=== PATIENT | female | born 1995 | race American Indian/Alaskan Native ===

== ENCOUNTER 2017-04-07 10:17 | Inpatient (IN) | payer MEDICAID ==
[2017-04-07] MEDS ORDERED: ZOFRAN IV PRN ×2 (11:14→23:08)
[2017-04-07] MEDS ORDERED: BRETHINE SUB-Q PRN (11:14)
[2017-04-07] MEDS ORDERED: MINERAL OIL PO PRN (11:14)
[2017-04-07] MEDS ORDERED: ePHEDrine SULFATE IV PRN (11:14)
[2017-04-07] MEDS ORDERED: BRETHINE IVP PRN (11:14)
[2017-04-07] MEDS ORDERED: SUBLIMAZE IV PRN (11:14)
[2017-04-07] MEDS ORDERED: XYLOCAINE 2% INFILTRATI ONE (11:14)
[2017-04-07] MEDS ORDERED: POLYCILLIN/NS 2 GM/100 ML 2 GM/100 ML BAG IV ONE (11:14)
--- NOTE | 2017-04-07 11:21 | History and Physical Report ---
History of Present Illness Date of examination: 04/07/17 Chief complaint: Painful contractions History of present illness: 21-year-old at 40+3 presents in active labor, she is a drop-in patient with care at Dr. Rebecca Crabtree's office. course unremarkable per patient, she is unsure of her GBS status but one-hour testing was negative. Dr Crabtree's office is closed this morning, I have no records Past History Past Medical History: no pertinent history Past Surgical History: no surgical history [employer] History: denies: chlamydia, gonorrhea, hepatitis B, hepatitis C, herpes, HIV , syphilis Social history: single, full code. denies: smoking, IV drug use - Obstetrical History Expected Date of Delivery: 04/04/17 Actual Gestation: 40 Week(s) 3 Day(s) : 1 Para: 0 Medications and Allergies Allergies Allergy/AdvReac Type Severity Reaction Status Date / Time No Known Allergies Allergy Unverified 04/07/17 10:44 Active Meds: Active Medications Ephedrine Sulfate (Ephedrine Sulfate) 10 mg IV Q2M PRN PRN Reason: Hypotension Fentanyl (Sublimaze) 100 mcg IV Q2H PRN PRN Reason: Labor Pain Ampicillin Sodium (Polycillin/Ns 2 Gm/100 Ml) 2 gm in 100 mls @ 100 mls/hr IV ONCE ONE PRN Reason: Protocol Stop: 04/07/17 12:13 Ampicillin Sodium (Polycillin/Ns 1 Gm/50 Ml) 1 gm in 50 mls @ 100 mls/hr IV Q4HR SHANE PRN Reason: Protocol Lactated Ringer's (Lactated Ringers) 1,000 mls @ 125 mls/hr IV DIRECT SHANE Oxytocin/Sodium Chloride (Pitocin/Ns 20 Unit/1000ml Drip) 20 units in 1,000 mls @ 125 mls/hr IV DIRECT SHANE Oxytocin/Sodium Chloride (Pitocin/Ns 30 Unit/500ml) 30 units in 500 mls @ 1 mls /hr IV TITR SHANE; 1 MILLIUNITS/MIN PRN Reason: Protocol Oxytocin/Sodium Chloride (Pitocin/Ns 30 Unit/500ml) 30 units in 500 mls @ 2 mls /hr IV TITR SHANE PRN Reason: Protocol Lidocaine (Xylocaine 2%) 20 ml INFILTRATI ONCE ONE Stop: 04/07/17 11:15 Mineral Oil (Mineral Oil) 30 ml PO QHS PRN PRN Reason: Constipation Ondansetron HCl (Zofran) 4 mg IV Q8H PRN PRN Reason: Nausea And Vomiting Terbutaline Sulfate (Brethine) 0.25 mg SUB-Q ONCE PRN PRN Reason: Hyperstimulation/Hypertonicity Terbutaline Sulfate (Brethine) 0.25 mg IVP ONCE PRN PRN Reason: Hyperstimulation/Hypertonicity Review of Systems Constitutional: no fever, no chills, no fatigue, no weakness, no chronic headaches, no chronic pain Cardiovascular: no chest pain, no orthopnea, no edema, no lightheadedness, no shortness of breath, no dyspnea on exertion, no high blood pressure, no decreased exercise tolerance Respiratory: no cough, no cough with sputum, no shortness of breath, no dyspnea on exertion Gastrointestinal: no abdominal pain, no nausea, no vomiting Genitourinary: contractions, no vaginal bleeding, no vaginal discharge, no leakage of fluid - Vital Signs Vital signs: Vital Signs Pulse BP 88 110/75 04/07/17 10:36 04/07/17 10:36 Temp Pulse Resp BP Pulse Ox 88 110/75 04/07/17 10:36 04/07/17 10:36 - Physical Exam Cardiovascular: Regular rate, Normal S1, Normal S2 Lungs: Positive: Clear to auscultation, Normal air movement Abdomen: Positive: normal appearance, soft. Negative: distention, tenderness, guarding, rigidity Vulva: both: normal Uterus: Positive: enlarged (EFW ~ 3600) Extremities: Positive: normal - Obstetrical FHR: category 1 Cervical Dilatation: 5 (Per RN exam) Results All other labs normal. Assessment and Plan A: 21-year-old at 40+3 weeks in active labor -Cat 1 tracing P: -Admit -Routine labs including PNL -Epidural when necessary -Expectant management - Patient Problems (1) 40 weeks gestation of Current Visit: Yes Status: Acute (2) Active labor at term Current Visit: Yes Status: Acute
[2017-04-07] MEDS ORDERED: PITOCin/NS 20 UNIT/1000ML DRIP 20 UNITS/1,000 ML BAG IV SCH ×2 (12:00→23:45)
[2017-04-07] MEDS ORDERED: PITOCin/NS 30 UNIT/500ML 30 UNITS/500 ML BAG IV SCH ×2 (12:00)
[2017-04-07 12:01] LABS: Hematocrit 34.1 % (30.3-42.9); Mean Corpuscular HGB Conc 32 % (30-34); Mean Corpuscular Volume 78 fl (79-97); Platelet Count 249 K/mm3 (140-440); Red Blood Count 4.36 M/mm3 (3.65-5.03); Red Cell Distribution Width 16.6 % (13.2-15.2)
[2017-04-07 12:05] LABS: Mean Corpuscular Hemoglobin 25 pg (28-32)
[2017-04-07] MEDS: LACTATED RINGERS 1,000 ML IV SCH ×3 (12:15→20:47)
[2017-04-07 12:18] LABS: Rubella IgG Antibody Immune (Immune)
[2017-04-07 12:22] LABS: Hepatitis C Virus Antibody Non-Reactive (NonReactive)
--- NOTE | 2017-04-07 14:02 | Progress Note ---
Assessment and Plan A: 21-year-old at 40+3 weeks in active labor -Cat 1 tracing P: -Epidural now -Continue present care -Anticipate normal vaginal delivery - Patient Problems (1) 40 weeks gestation of Current Visit: Yes Status: Acute (2) Active labor at term Current Visit: Yes Status: Acute Subjective - Subjective Date of service: 04/07/17 Interval history: Patient seen and examined, stable doing well. Cervical exam 6 cm Patient reports: new complaints, movement normal, contractions, no loss of fluid, no vaginal bleeding Objective - Vital Signs Vital Signs: Vital Signs - 12hr 04/07/17 04/07/17 04/07/17 10:36 12:31 12:36 Pulse Rate 88 110 H 84 Blood Pressure 110/75 O2 Sat by Pulse 93 99 Oximetry 04/07/17 04/07/17 04/07/17 12:40 12:41 12:46 Pulse Rate 111 H 94 H 91 H Blood Pressure O2 Sat by Pulse 93 98 97 Oximetry 04/07/17 04/07/17 04/07/17 12:51 12:56 13:01 Pulse Rate 82 84 94 H Blood Pressure O2 Sat by Pulse 97 98 99 Oximetry 04/07/17 04/07/17 04/07/17 13:06 13:11 13:16 Pulse Rate 87 99 H 72 Blood Pressure O2 Sat by Pulse 98 98 99 Oximetry 04/07/17 04/07/17 04/07/17 13:21 13:26 13:31 Pulse Rate 87 91 H 86 Blood Pressure O2 Sat by Pulse 99 99 98 Oximetry 04/07/17 04/07/17 04/07/17 13:36 13:41 13:43 Pulse Rate 80 85 101 H Blood Pressure O2 Sat by Pulse 97 97 0 L Oximetry 04/07/17 04/07/17 04/07/17 13:46 13:51 13:52 Pulse Rate 83 85 102 H Blood Pressure O2 Sat by Pulse 97 97 91 Oximetry 04/07/17 04/07/17 04/07/17 13:56 13:59 14:01 Pulse Rate 91 H 98 H 100 H Blood Pressure O2 Sat by Pulse 94 84 95 Oximetry - Exam FHR: category 1 Cervical Dilatation: 6 Cervical Effacement Percentage: 100 station: -1 - Labs Labs: Abnormal Labs 04/07/17 11:30 MCV 78 L MCH 25 L RDW 16.6 H Laboratory Results - last 24 hr 04/07/17 04/07/17 04/07/17 11:30 11:30 11:30 WBC 9.4 RBC 4.36 Hgb 11.0 Hct 34.1 MCV 78 L MCH 25 L MCHC 32 RDW 16.6 H Plt Count 249 Hep Bs Antigen Hepatitis C Antibody Non-reactive HIV 1&2 Antibody Rapid HIV P24 Antigen Rubella IgG Antibody Immune Blood Type O POSITIVE Antibody Screen Negative 04/07/17 04/07/17 11:30 11:30 WBC RBC Hgb Hct MCV MCH MCHC RDW Plt Count Hep Bs Antigen Non-reactive Hepatitis C Antibody HIV 1&2 Antibody Rapid Non react HIV P24 Antigen Non react Rubella IgG Antibody Blood Type Antibody Screen
[2017-04-07] MEDS ORDERED: NARCAN 2 MG/2 ML IV PRN (14:35)
--- NOTE | 2017-04-07 14:35 | Anesthesia Consultation ---
Anesthesia Consult and Med Hx Date of service: 04/07/17 - Airway Anesthetic Teeth Evaluation: Good ROM Head & Neck: Adequate Mental/Hyoid Distance: Adequate Mallampati Class: Class II Intubation Access Assessment: Probably Good - Pulmonary Exam CTA: Yes - Cardiac Exam Cardiac Exam: RRR - Pre-Operative Health Status ASA Pre-Surgery Classification: ASA2 Proposed Anesthetic Plan: Epidural, Spinal - Pulmonary Hx Asthma: No COPD: No Hx Pneumonia: No - Cardiovascular System Hx Hypertension: No - Central Nervous System Hx Seizures: No Hx Psychiatric Problems: No - Endocrine Hx Renal Disease: No Hx End Stage Renal Disease: No Hx Hypothyroidism: No Hx Hyperthyroidism: No - Hematic Hx Anemia: No Hx Sickle Cell Disease: No - Other Systems Hx Alcohol Use: No Hx Obesity: Yes - Additional Comments Anesthesia Medical History Comments: +IUP
[2017-04-07] MEDS ORDERED: fentaNYL-BUPIV 2 MCG/ML-0.125% 200 MCG/100 ML BAG EPIDURAL SCH (14:36)
[2017-04-07] MEDS ORDERED: POLYCILLIN/NS 1 GM/50 ML 1 GM/50 ML BAG IV SCH (15:15)
--- NOTE | 2017-04-07 16:26 | Progress Note ---
Assessment and Plan - Patient Problems (1) 40 weeks gestation of Current Visit: Yes Status: Acute (2) Active labor at term Current Visit: Yes Status: Acute Subjective - Subjective Date of service: 04/07/17 Interval history: Patient status post epidural with bradycardia secondary to hypotension. Above resolved with fluid boluses and ephedrine, now category 1 Patient reports: new complaints, movement normal, contractions, no loss of fluid, no vaginal bleeding Objective - Vital Signs Vital Signs: Vital Signs - 12hr 04/07/17 04/07/17 04/07/17 10:36 12:31 12:36 Pulse Rate 88 110 H 84 Blood Pressure 110/75 O2 Sat by Pulse 93 99 Oximetry 04/07/17 04/07/17 04/07/17 12:40 12:41 12:46 Pulse Rate 111 H 94 H 91 H Blood Pressure O2 Sat by Pulse 93 98 97 Oximetry 04/07/17 04/07/17 04/07/17 12:51 12:56 13:01 Pulse Rate 82 84 94 H Blood Pressure O2 Sat by Pulse 97 98 99 Oximetry 04/07/17 04/07/17 04/07/17 13:06 13:11 13:16 Pulse Rate 87 99 H 72 Blood Pressure O2 Sat by Pulse 98 98 99 Oximetry 04/07/17 04/07/17 04/07/17 13:21 13:26 13:31 Pulse Rate 87 91 H 86 Blood Pressure O2 Sat by Pulse 99 99 98 Oximetry 04/07/17 04/07/17 04/07/17 13:36 13:41 13:43 Pulse Rate 80 85 101 H Blood Pressure O2 Sat by Pulse 97 97 0 L Oximetry 04/07/17 04/07/17 04/07/17 13:46 13:51 13:52 Pulse Rate 83 85 102 H Blood Pressure O2 Sat by Pulse 97 97 91 Oximetry 04/07/17 04/07/17 04/07/17 13:56 13:59 14:01 Pulse Rate 91 H 98 H 100 H Blood Pressure O2 Sat by Pulse 94 84 95 Oximetry 04/07/17 04/07/17 04/07/17 14:06 14:11 14:20 Pulse Rate 85 86 114 H Blood Pressure 134/92 O2 Sat by Pulse 98 99 Oximetry 04/07/17 04/07/17 04/07/17 14:22 14:24 14:26 Pulse Rate 100 H 111 H 104 H Blood Pressure 122/81 134/80 134/80 O2 Sat by Pulse Oximetry 04/07/17 04/07/17 04/07/17 14:28 14:30 14:32 Pulse Rate 96 H 101 H 100 H Blood Pressure 126/73 117/66 120/77 O2 Sat by Pulse Oximetry 04/07/17 04/07/17 04/07/17 14:34 14:55 14:56 Pulse Rate 99 H 82 82 Blood Pressure 109/57 90/51 O2 Sat by Pulse 74 L Oximetry 04/07/17 04/07/17 04/07/17 15:00 15:04 15:05 Pulse Rate 77 56 L 81 Blood Pressure 77/51 72/43 70/42 O2 Sat by Pulse 100 92 80 L Oximetry 04/07/17 04/07/17 04/07/17 15:10 15:12 15:15 Pulse Rate 71 84 69 Blood Pressure 120/59 112/59 O2 Sat by Pulse 100 100 Oximetry 04/07/17 04/07/17 04/07/17 15:20 15:25 15:30 Pulse Rate 71 92 H 78 Blood Pressure 120/58 108/60 103/58 O2 Sat by Pulse 100 100 100 Oximetry 04/07/17 04/07/17 04/07/17 15:35 15:40 15:45 Pulse Rate 86 91 H 85 Blood Pressure 113/62 121/69 108/72 O2 Sat by Pulse 100 100 100 Oximetry 04/07/17 04/07/17 04/07/17 15:48 15:50 15:51 Pulse Rate 96 H 100 H 96 H Blood Pressure 108/79 O2 Sat by Pulse 94 100 Oximetry 04/07/17 04/07/17 04/07/17 15:55 16:00 16:05 Pulse Rate 98 H 86 89 Blood Pressure 104/75 110/60 109/64 O2 Sat by Pulse 100 100 100 Oximetry 04/07/17 04/07/17 04/07/17 16:10 16:15 16:16 Pulse Rate 87 89 93 H Blood Pressure 109/63 115/69 O2 Sat by Pulse 100 100 Oximetry 04/07/17 16:20 Pulse Rate 86 Blood Pressure O2 Sat by Pulse 100 Oximetry - Exam FHR: category 1 Cervical Dilatation: 7 - Labs Labs: Abnormal Labs 04/07/17 11:30 MCV 78 L MCH 25 L RDW 16.6 H Laboratory Results - last 24 hr 04/07/17 04/07/17 04/07/17 11:30 11:30 11:30 WBC 9.4 RBC 4.36 Hgb 11.0 Hct 34.1 MCV 78 L MCH 25 L MCHC 32 RDW 16.6 H Plt Count 249 Hep Bs Antigen Hepatitis C Antibody Non-reactive HIV 1&2 Antibody Rapid HIV P24 Antigen Rubella IgG Antibody Immune Blood Type O POSITIVE Antibody Screen Negative 04/07/17 04/07/17 11:30 11:30 WBC RBC Hgb Hct MCV MCH MCHC RDW Plt Count Hep Bs Antigen Non-reactive Hepatitis C Antibody HIV 1&2 Antibody Rapid Non react HIV P24 Antigen Non react Rubella IgG Antibody Blood Type Antibody Screen
[2017-04-07 21:06] LABS: Amphetamine Screen,Urine PRESUMPTIVE NEGATIVE; Benzodiazepines Screen,Urine PRESUMPTIVE NEGATIVE; Cannabinoid Screen,Urine PRESUMPTIVE NEGATIVE; Cocaine Screen,Urine PRESUMPTIVE NEGATIVE; Methadone Screen,Urine PRESUMPTIVE NEGATIVE; Opiate Screen,Urine PRESUMPTIVE NEGATIVE
--- NOTE | 2017-04-07 23:06 | Procedure Note ---
OB Delivery Note - Delivery Date of Delivery: 04/07/17 Surgeon: BANG CRAWFORD Estimated blood loss: 100cc - Vaginal Delivery presentation: vertex Delivery position: OA Intrapartum events: shoulder dystocia (Posterior shoulder dystocia of less than 30 seconds duration) Delivery induction: none Delivery augmentation: pitocin Delivery monitor: external FHT, external uterine Route of delivery: Delivery placenta: spontaneous Delivery cord: 3 umbilical vessels Episiotomy: none Delivery laceration: 1st degree, vaginal side wall (bilateral) Delivery repair: vicryl Anesthesia: epidural Delivery comments: Posterior shoulder dystocia less than 30 seconds and counted. Above relieved with Ronnie positioning delivery of the anterior arm and then delivered the posterior arm - A at 1 minute: 5 at 5 minutes: 8 Infant Gender: Male (time of delivery 2244, infant weight 7 lbs. 2 oz. or 3236 g )
[2017-04-07] MEDS ORDERED: PHENERGAN PO PRN (23:08)
[2017-04-07] MEDS ORDERED: DULCOLAX PR PRN (23:08)
[2017-04-07] MEDS ORDERED: TYLENOL PO PRN (23:08)
[2017-04-07] MEDS ORDERED: BENADRYL PO PRN (23:08)
[2017-04-07] MEDS ORDERED: MILK OF MAGNESIA PO PRN (23:08)
[2017-04-07] MEDS ORDERED: PHENERGAN PR PRN (23:08)
[2017-04-07] MEDS ORDERED: SODIUM CHLORIDE FLUSH SYRINGE 10 ML IV PRN (23:45)
[2017-04-08] MEDS: TUCKS PAD TP PRN ×2 (02:29→12:28)
[2017-04-08] MEDS ORDERED: DERMOPLAST TP PRN (02:52)
[2017-04-08] MEDS: NORCO 5/325 PO PRN ×2 (04:48→19:59)
--- NOTE | 2017-04-08 07:27 | Progress Note ---
Assessment and Plan - Patient Problems (1) (normal spontaneous vaginal delivery) Onset Date: 04/08/17 Current Visit: Yes Status: Resolved Plan to address problem: A: S/P - PPD #1 Doing well P: May go home tomorrow Subjective - Subjective Date of service: 04/08/17 Principal diagnosis: s/p - PPD #1 Interval history: Pt feeling well without complaints. Bleeding still heavy but decreasing. Patient reports: appetite normal, voiding normally, pain well controlled, flatus , ambulating normally [place]: doing well, nursing well, bottle feeding Objective - Vital Signs Latest vital signs: Vital Signs Temp Pulse Resp BP Pulse Ox 04/08/17 05:41 98.4 F 97 H 20 109/73 99 04/08/17 04:48 18 04/08/17 01:17 99.3 F 76 20 108/57 98 04/08/17 00:01 78 124/67 04/07/17 23:46 81 128/70 04/07/17 23:31 85 124/66 04/07/17 23:30 98.5 F 04/07/17 23:29 85 125/67 04/07/17 23:17 96 H 125/69 04/07/17 23:02 97 H 121/57 04/07/17 22:26 121 H 115/79 04/07/17 22:17 84 123/60 04/07/17 22:14 121 H 98 04/07/17 22:08 108 H 100 04/07/17 22:03 103 H 72 L 04/07/17 22:02 100 H 140/69 04/07/17 22:01 79 L 04/07/17 21:58 91 H 93 04/07/17 21:54 104 H 92 04/07/17 21:53 108 H 100 04/07/17 21:48 95 H 100 04/07/17 21:46 91 H 130/82 04/07/17 21:43 92 H 100 04/07/17 21:38 84 100 04/07/17 21:33 84 100 04/07/17 21:32 90 133/75 04/07/17 21:28 102 H 100 04/07/17 21:23 116 H 100 04/07/17 21:19 103 H 121/62 04/07/17 21:13 89 93 01/18/18 21:10 90 100 01/18/18 21:08 97.7 F 01/18/18 21:05 90 100 01/18/18 21:02 82 109/60 01/18/18 21:00 99 H 98 01/18/18 20:55 92 H 93 01/18/18 20:50 95 H 100 01/18/18 20:47 94 H 106/59 01/18/18 20:45 101 H 100 01/18/18 20:36 101 H 100 01/18/18 20:31 98 H 106/64 100 01/18/18 20:26 99 H 100 01/18/18 20:21 106 H 100 /18/18 20:16 102 H 102/59 100 01/18/18 20:11 99 H 100 01/18/18 20:06 101 H 100 01/18/18 20:01 99 H 106/59 100 01/18/18 19:56 99 H 99 01/18/18 19:51 115 H 100 01/18/18 19:46 97 H 101/61 99 01/18/18 19:41 105 H 99 01/18/18 19:36 105 H 99 01/18/18 19:32 97 H 105/59 /18/18 19:31 91 H 99 01/18/18 19:25 97 H 100 01/18/18 19:21 87 91 01/18/18 19:20 101 H 98 01/18/18 19:18 109 H 161/65 01/18/18 19:15 100 H 99 01/18/18 19:10 104 H 98 01/18/18 19:05 100 H 98 01/18/18 19:04 97.7 F 20 01/18/18 19:00 108 H 111/60 98 01/18/18 18:55 96 H 111/63 99 01/18/18 18:50 98 H 115/62 98 01/18/18 18:45 92 H 115/66 99 01/18/18 18:40 101 H 108/64 98 01/18/18 18:35 98 H 111/65 99 01/18/18 18:30 104 H 105/59 100 01/18/18 18:25 94 H 99/50 100 01/18/18 18:20 96 H 112/64 100 01/18/18 18:16 97 H 110/65 18/18 18:15 97 H 100 18/18 18:10 98 H 107/62 100 18/18 18:05 90 108/66 100 18/18 18:01 93 H 109/55 18/18 18:00 98 H 100 18/18 17:56 98 H 90/53 18/18 17:55 93 H 100 18/18 17:50 101 H 106/64 100 18/18 17:46 101 H 104/61 18/18 17:45 89 100 18/18 17:41 96 H 119/79 18/18 17:40 107 H 100 18/18 17:36 85 113/65 18/18 17:35 86 100 18/18 17:32 90 107/59 18/18 17:30 98 H 99 18/18 17:26 90 105/54 18/18 17:25 91 H 100 18/18 17:22 83 109/67 18/18 17:20 107 H 100 18/18 17:16 87 116/69 18/18 17:15 95 H 100 18/18 17:10 86 101/58 98 18/18 17:06 91 H 97/60 18/18 17:05 99 H 99 18/18 17:01 90 101/59 18/18 17:00 97 H 98 18/18 16:56 93 H 101/59 18/18 16:55 90 99 18/18 16:51 100 H 110/74 18/18 16:50 98 H 99 18/18 16:45 105 H 100/61 100 18/18 16:40 100 H 104/66 98 18/18 16:35 89 111/62 99 18/18 16:31 94 H 109/68 18/18 16:30 81 99 18/18 16:25 85 113/66 100 18/18 16:22 84 108/61 18/18 16:20 86 100 18/18 16:16 93 H 115/69 18/18 16:15 89 100 01/18/18 16:10 87 109/63 100 01/18/18 16:05 89 109/64 100 01/18/18 16:00 86 110/60 100 01/18/18 15:55 98 H 104/75 100 01/18/18 15:51 96 H 108/79 01/18/18 15:50 100 H 100 01/18/18 15:48 96 H 94 /18/18 15:45 85 108/72 100 01/18/18 15:40 91 H 121/69 100 01/18/18 15:35 86 113/62 100 01/18/18 15:30 78 103/58 100 01/18/18 15:25 92 H 108/60 100 /18/18 15:20 71 120/58 100 01/18/18 15:15 69 112/59 100 01/18/18 15:12 84 120/59 /18/18 15:10 71 100 01/18/18 15:05 81 70/42 80 L /18/18 15:04 56 L 72/43 92 /18/18 15:00 77 77/51 100 01/18/18 14:56 82 90/51 01/18/18 14:55 82 74 L /18/18 14:34 99 H 109/57 01/18/18 14:32 100 H 120/77 01/18/18 14:30 101 H 117/66 01/18/18 14:29 18 109/57 /18/18 14:28 96 H 126/73 /18/18 14:26 104 H 134/80 01/18/18 14:24 111 H 134/80 /18/18 14:22 100 H 122/81 01/18/18 14:20 114 H 134/92 /18/18 14:11 86 99 01/18/18 14:06 85 98 /18/18 14:01 100 H 95 /18/18 13:59 98 H 84 /18/18 13:56 91 H 94 /18/18 13:52 102 H 91 /18/18 13:51 85 97 01/18/18 13:46 83 97 01/18/18 13:43 101 H 0 L /18/18 13:41 85 97 01/18/18 13:36 80 97 01/18/18 13:31 86 98 04/07/17 13:26 91 H 99 04/07/17 13:21 87 99 04/07/17 13:16 72 99 04/07/17 13:11 99 H 98 04/07/17 13:06 87 98 04/07/17 13:01 94 H 99 04/07/17 12:56 84 98 04/07/17 12:51 82 97 04/07/17 12:46 91 H 97 04/07/17 12:41 94 H 98 04/07/17 12:40 111 H 93 04/07/17 12:36 84 99 04/07/17 12:31 110 H 93 04/07/17 10:36 88 110/75 Intake and Output 04/07/17 04/08/17 04/08/17 22:59 06:59 14:59 Intake Total 1001.1 360 Output Total 600 200 Balance 401.1 160 Intake: IV 1001.1 Lactated Ringers 1,000 ml 1000 @ 125 mls/hr IV DIRECT SHANE Rx#:[id number] PITOCin/NS 30 UNIT/500ML 1.1 30 units In 500 ml @ 2 mls/hr IV TITR SHANE Rx#: [id number] Intake, Free Water 360 Output: Urine 600 200 Indwelling Catheter 500 Uretheral ([place]) 100 Void 200 Other: Total, Output Amount 500 200 Estimated Blood Loss 100 - Exam Breasts: Present: deferred Cardiovascular: Present: Regular rate Abdomen: Present: normal appearance, soft Uterus: Present: normal, firm, fundal height below umbilicus Extremities: Present: normal - Labs Labs: Abnormal lab results 04/07/17 Range/Units 11:30 MCV 78 L (79-97) fl MCH 25 L (28-32) pg RDW 16.6 H (13.2-15.2) % Laboratory Tests 04/07/17 04/07/17 04/07/17 11:30 11:30 11:30 WBC 9.4 RBC 4.36 Hgb 11.0 Hct 34.1 MCV 78 L MCH 25 L MCHC 32 RDW 16.6 H Plt Count 249 Urine Opiates Screen Urine Methadone Screen Ur Barbiturates Screen Ur Phencyclidine Scrn Ur Amphetamines Screen U Benzodiazepines Scrn Urine Cocaine Screen U Marijuana (THC) Screen Drugs of Abuse Note Hep Bs Antigen Hepatitis C Antibody Non-reactive HIV 1&2 Antibody Rapid HIV P24 Antigen Rubella IgG Antibody Immune Blood Type O POSITIVE Antibody Screen Negative 04/07/17 04/07/17 04/07/17 11:30 11:30 20:00 WBC RBC Hgb Hct MCV MCH MCHC RDW Plt Count Urine Opiates Screen Presumptive negative Urine Methadone Screen Presumptive negative Ur Barbiturates Screen Presumptive negative Ur Phencyclidine Scrn Presumptive negative Ur Amphetamines Screen Presumptive negative U Benzodiazepines Scrn Presumptive negative Urine Cocaine Screen Presumptive negative U Marijuana (THC) Screen Presumptive negative Drugs of Abuse Note Disclamer Hep Bs Antigen Non-reactive Hepatitis C Antibody HIV 1&2 Antibody Rapid Non react HIV P24 Antigen Non react Rubella IgG Antibody Blood Type Antibody Screen
[2017-04-08] MEDS: MOTRIN PO SCH ×3 (08:59→20:00)
[2017-04-08] MEDS: PRENATAL VITAMIN PO SCH (09:00)
[2017-04-08] MEDS: COLACE PO SCH ×2 (09:00→20:01)
[2017-04-08] MEDS: FEOSOL PO SCH ×2 (09:00→20:00)
[2017-04-08] MEDS: LANSINOH TP PRN ×2 (09:03→20:34)
[2017-04-08] MEDS: SENOKOT S PO SCH ×2 (16:44→20:01)
[2017-04-08 16:52] LABS: Hematocrit 33.7 % (30.3-42.9); Hemoglobin 10.7 gm/dl (10.1-14.3)
[2017-04-08] MEDS ORDERED: M-M-R II VACCINE SUB-Q ONE (23:08)
[2017-04-09] MEDS: MOTRIN PO SCH ×2 (05:49→13:45)
[2017-04-09] MEDS ORDERED: BOOSTRIX IM ONE (06:00)
--- NOTE | 2017-04-09 10:00 | Discharge Summary ---
Providers - Providers Date of Admission: 04/07/17 11:41 Date of discharge: 04/09/17 Attending physician: BANG CRAWFORD Primary care physician: BANG CRAWFORD Hospitalization Reason for admission: active labor, IUP at term Delivery: Episiotomy: none Laceration: 1st degree Other procedures: none complications: none Discharge diagnosis: IUP at term delivered [place] baby: male Hospital course: Unremarkable. Condition at discharge: Good Disposition: DC-01 TO HOME OR SELFCARE - Discharge Diagnoses (1) (normal spontaneous vaginal delivery) Status: Resolved Plan - Discharge Medications Prescriptions: HYDROcodone/APAP 5-325 [[place] 5/325] 1 each PO Q6HR PRN #10 tablet PRN Reason: Pain Ibuprofen [Motrin 600 MG tab] 600 mg PO Q8H PRN #30 tablet PRN Reason: Pain Multivitamin with Iron [Multivitamins with Iron] 1 each PO DAILY #30 tablet - Provider Discharge Summary Activity: routine, no sex for 6 weeks, no heavy lifting 4 weeks, no strenuous exercise Diet: routine Instructions: routine Additional instructions: [] Smoking cessation referral if applicable(refer to patient education folder for contact #) [] Refer to [facility] Book[facility] Call your doctor immediately for: * Fever > 100.5 * Heavy vaginal bleeding ( >1 pad per hour) * Severe persistent headache * Shortness of breath * Reddened, hot, painful area to leg or breast * Drainage or odor from incision. * Keep incision clean and dry at all times and follow doctor's instructions regarding bathing/showering - Follow up plan Follow up: BANG CRAWFORD MD [Primary Care Provider] - 6 Weeks
[2017-04-09] MEDS: FEOSOL PO SCH (13:45)
[2017-04-09] MEDS: COLACE PO SCH (13:45)
[2017-04-09] MEDS: NORCO 5/325 PO PRN (13:45)
[2017-04-09] MEDS: PRENATAL VITAMIN PO SCH (13:45)
[2017-04-09 17:15] VITALS: BP 113/64
== END 2017-04-09 18:10 | disposition home or self-care (01) | DRG 774 ==
LOC: TRG 10:17 → LD 11:41 → OB 04-08 00:46
PROVIDERS: ADMIT Obstetrics & Gynecology Gynecology; ATTEND Obstetrics & Gynecology Gynecology
PROC: 10E0XZZ Delivery of Products of Conception, External Approach (ICD-10-PCS; 2017-04-07)
PROC: 0HQ9XZZ Repair Perineum Skin, External Approach (ICD-10-PCS; 2017-04-07)
PROC: 3E0R3BZ Introduction of Anesthetic Agent into Spinal Canal, Percutaneous Approach (ICD-10-PCS; 2017-04-07)
PROC: 00HU33Z Insertion of Infusion Device into Spinal Canal, Percutaneous Approach (ICD-10-PCS; 2017-04-07)
PROC: 3E0234Z Introduction of Serum, Toxoid and Vaccine into Muscle, Percutaneous Approach (ICD-10-PCS; principal; 2017-04-08)
DX: O66.0 Obstructed labor due to shoulder dystocia (principal); O99.42 Diseases of the circulatory system complicating childbirth; O70.0 First degree perineal laceration during delivery; Z60.2 Problems related to living alone; O99.214 Obesity complicating childbirth; O26.53 Maternal hypotension syndrome, third trimester; R00.1 Bradycardia, unspecified; E66.9 Obesity, unspecified; Z23 Encounter for immunization; Z37.0 Single live birth; Z3A.40 40 weeks gestation of pregnancy; Z68.34 Body mass index [BMI] 34.0-34.9, adult
CPT/HCPCS: 36415; 80307; 85014; 85018; 85027; 86592; 86706; 86762; 86803; 86850; 86900; 86901; 87806; 90471; 90715; 99211; A6250; G0463; J0290; J2590; J3010; J7120

== ENCOUNTER 2017-04-12 00:07 | Emergency (ER) | payer MEDICAID ==
[2017-04-12 01:12] VITALS: BP 117/80
== END 2017-04-12 03:15 | disposition left against medical advice (07) ==
LOC: ED 00:07
DX: R52 Pain, unspecified (principal); Z53.21 Procedure and treatment not carried out due to patient leaving prior to being seen by health care provider

== ENCOUNTER 2018-03-31 22:35 | Emergency (ER) | payer OTHER ==
--- NOTE | 2018-04-01 01:59 | Emergency Department Report ---
ED Headache HPI - General Chief Complaint: Headache Stated Complaint: HEADACHE BODYACHE Time Seen by Provider: 04/01/18 01:46 - History of Present Illness Initial Comments: 22-year-old female presents to the emergency room for headache 2 days, coughing, runny nose, body aches, nasal congestion and sore throat. Patient reports that she took Tylenol about 7 PM on Tuesday which she reports has not helped. Patient does report a sick contact her roommate has the flu. Patient denies any past medical history currently takes no medications has no known drug allergies. Quality: moderate, achy Head Injury Location: frontal Associated Symptoms: fatigue, facial pain, nausea/vomiting (nausea no vomiting), nasal congestion, nasal drainage Allergies/Adverse Reactions: Allergies No Known Allergies Allergy (Unverified 04/07/17 10:44) Home Medications: Ambulatory Orders HYDROcodone/APAP 5-325 [[place] 5/325] 1 each PO Q6HR PRN #10 tablet 04/07/17 Multivitamin with Iron [Multivitamins with Iron] 1 each PO DAILY #30 tablet 04/07/17 Ibuprofen [Motrin 600 MG tab] 600 mg PO Q8H PRN #30 tablet 04/01/18 Oseltamivir Phosphate [Tamiflu] 75 mg PO BID #10 capsule 04/01/18 ED Review of Systems ROS: Stated complaint: HEADACHE BODYACHE Other details as noted in HPI Comment: All other systems reviewed and negative ENT: throat pain, congestion, other (rhinorrhea) Respiratory: cough Gastrointestinal: nausea Musculoskeletal: myalgia ED Past Medical Hx - Past Medical History Previous Medical History?: No Hx Hypertension: No Hx Congestive Heart Failure: No Hx Diabetes: No Hx Deep Vein Thrombosis: No Hx Renal Disease: No Hx Sickle Cell Disease: No Hx Seizures: No Hx Asthma: No Hx COPD: No Hx HIV: No - Surgical History Past Surgical History?: No - Social History Smoking Status: Never Smoker Substance Use Type: None - Medications Home Medications: Home Medications Medication Instructions Recorded Confirmed Last Taken Type HYDROcodone/APAP 5-325 [[place] 1 each PO Q6HR PRN #10 tablet 04/07/17 Unknown Rx 5/325] Multivitamin with Iron 1 each PO DAILY #30 tablet 04/07/17 Unknown Rx [Multivitamins with Iron] Ibuprofen [Motrin 600 MG tab] 600 mg PO Q8H PRN #30 tablet 04/01/18 Unknown Rx Oseltamivir Phosphate [Tamiflu] 75 mg PO BID #10 capsule 04/01/18 Unknown Rx ED Physical Exam - General Limitations: No Limitations General appearance: alert, in no apparent distress - Head Head exam: Present: atraumatic, normocephalic - Eye Eye exam: Present: normal appearance - Expanded ENT Exam Expanded Throat exam: Positive: tonsillar erythema, tonsillomegaly, tonsillar exudate - Neck Neck exam: Present: normal inspection - Respiratory Respiratory exam: Present: normal lung sounds bilaterally. Absent: respiratory distress - Cardiovascular Cardiovascular Exam: Present: regular rate, normal rhythm. Absent: systolic murmur, diastolic murmur, rubs, gallop - Extremities Exam Extremities exam: Present: normal inspection, full ROM - Neurological Exam Neurological exam: Present: alert, oriented X3 - Psychiatric Psychiatric exam: Present: normal affect, normal mood - Skin Skin exam: Present: warm, dry, intact, normal color. Absent: rash ED Course Vital Signs 03/31/18 22:49 Temperature 99.2 F Pulse Rate 84 Respiratory 20 Rate Blood Pressure 116/74 O2 Sat by Pulse 100 Oximetry ED Medical Decision Making - Medical Decision Making Patient has been evaluated by this provider in fast track. Ibuprofen 600 mg and Tessalon Perles 100 mg given for pain management and cough control. Rapid strep has been ordered and sent to lab since patient has a sore throat with erythematous and edematous tonsils. I discussed the patient if her rapid strep is negative we would treat her for flu since she has a positive contact. Patient verbalizes understanding. Critical care attestation.: If time is entered above; I have spent that time in minutes in the direct care of this critically ill patient, excluding procedure time. ED Disposition Clinical Impression: Viral syndrome Disposition: DC-01 TO HOME OR SELFCARE Is pt being admited?: No Does the pt Need Aspirin: No Condition: Stable Instructions: Viral Syndrome (ED) Additional Instructions: Please complete medication as prescribed. Take ibuprofen as needed for pain. Increase her water intake and advance her diet as tolerated. Follow-up with the primary care provider if his symptoms persist or gets worse. Prescriptions: Ibuprofen [Motrin 600 MG tab] 600 mg PO Q8H PRN #30 tablet PRN Reason: Pain Oseltamivir Phosphate [Tamiflu] 75 mg PO BID #10 capsule Referrals: PRIMARY CARE, [Primary Care Provider] - 3-5 Days [facility] [Provider Group] - 3-5 Days Forms: Work/School Release Form(ED)
[2018-04-01] MEDS ORDERED: TESSALON PERLES PO ONE ×2 (03:07→03:12)
[2018-04-01] MEDS ORDERED: IBUPROFEN PO ONE ×2 (03:08→03:12)
[2018-04-01 04:22] VITALS: BP 111/60
== END 2018-04-01 04:36 | disposition home or self-care (01) ==
LOC: ED 22:35
DX: B34.9 Viral infection, unspecified (principal)
CPT/HCPCS: 87116; 87430; 99283

== ENCOUNTER 2020-11-14 00:43 | Inpatient (IN) | payer OTHER ==
[2020-11-14 02:32] LABS: Hematocrit 30.2 % (30.3-42.9); Hemoglobin 9.8 gm/dl (10.1-14.3); Mean Corpuscular HGB Conc 32 % (30-34); Mean Corpuscular Volume 74 fl (79-97); Platelet Count 224 K/mm3 (140-440); Red Blood Count 4.07 M/mm3 (3.65-5.03); Red Cell Distribution Width 18.1 % (13.2-15.2)
[2020-11-14] MEDS ORDERED: ONDANSETRON 4 MG/2 ML INJ IV PRN ×3 (02:48→12:00)
[2020-11-14] MEDS ORDERED: ePHEDrine SULFATE 50 MG/1 ML INJ IV PRN ×2 (02:48→11:00)
[2020-11-14] MEDS ORDERED: BUTORPHANOL 2 MG/1 ML INJ IV PRN (02:48)
[2020-11-14] MEDS ORDERED: ACETAMINOPHEN 325 MG TAB PO PRN ×2 (02:48→11:30)
[2020-11-14] MEDS ORDERED: NalbUPHINE 10 MG/1 ML INJ IV PRN ×2 (02:48→11:00)
[2020-11-14] MEDS ORDERED: NALOXONE 0.4 MG/1 ML INJ IV PRN (02:48)
[2020-11-14] MEDS ORDERED: TERBUTALINE 1 MG/1 ML INJ SUB-Q PRN (02:48)
[2020-11-14] MEDS ORDERED: miSOPROStol 200 MCG TAB PR PRN (02:48)
[2020-11-14] MEDS ORDERED: LIDOCAINE (2%) 20 MG/1 ML VIAL 20 ML MDV INFILTRATI ONE (02:48)
[2020-11-14] MEDS ORDERED: OXYTOCIN 10 UNIT/1 ML INJ IM PRN (02:48)
[2020-11-14] MEDS ORDERED: METHYLERGONOVINE MALEATE 0.2 MG/ML VIAL IM PRN (02:48)
[2020-11-14] MEDS ORDERED: MINERAL OIL 30 ML ORAL LIQD PO PRN (02:48)
[2020-11-14] MEDS ORDERED: LOPERAMIDE 2 MG CAP PO PRN (02:48)
[2020-11-14] MEDS ORDERED: fentaNYL 100 MCG/2 ML INJ IV PRN (02:48)
[2020-11-14] MEDS ORDERED: CARBOPROST TROMETHAMINE 250 MCG/1 ML INJ IM PRN (02:48)
[2020-11-14] MEDS ORDERED: LACTATED RINGERS 1,000 ML IV SCH (03:00)
[2020-11-14] MEDS ORDERED: OXYTOCIN DRIP 30 UNITS/500 ML BAG IV SCH ×2 (03:00)
--- NOTE | 2020-11-14 08:15 | History and Physical Report ---
History of Present Illness Date of examination: 11/14/20 Date of admission: 11/14/20 02:48 Chief complaint: Induction of labor History of present illness: 24-year-old -0-0-2 at 40 for 6 weeks and is for postdates induction and also intrauterine growth restriction. The patient is a transfer care at 14 weeks estimated gestational age. Her course is also complicated by history of genital herpes and she denies any recent prodrome. Past History Past Medical History: no pertinent history Past Surgical History: no surgical history Social history: - Obstetrical History Expected Date of Delivery: 11/08/20 Actual Gestation: 40 Week(s) 6 Day(s) : 3 Para: 2 Hx # Term Pregnancies: 2 Number of Pregnancies: 0 Spontaneous Abortions: 0 Induced : 0 Number of Living Children: 2 Medications and Allergies Allergies Allergy/AdvReac Type Severity Reaction Status Date / Time No Known Allergies Allergy Unverified 04/07/17 10:44 Home Medications Medication Instructions Recorded Confirmed Last Taken Type Ferrous Sulfate [Iron 325 MG] 325 mg PO DAILY 11/14/20 11/14/20 1 Day Ago History ~11/13/20 Active Meds: Active Medications Acetaminophen (Acetaminophen 325 Mg Tab) 650 mg PO Q4H PRN PRN Reason: Pain, Mild (1-3) Butorphanol Tartrate (Butorphanol 2 Mg/1 Ml Inj) 2 mg IV Q2H PRN PRN Reason: Pain , Severe (7-10) Last Admin: 11/14/20 05:18 Dose: 2 mg Documented by: Carboprost Tromethamine (Carboprost Tromethamine 250 Mcg/1 Ml Inj) 250 mcg IM ONCE PRN PRN Reason: Uterine Bleeding Ephedrine Sulfate (Ephedrine Sulfate 50 Mg/1 Ml Inj) 10 mg IV Q2M PRN PRN Reason: Hypotension Fentanyl (Fentanyl 100 Mcg/2 Ml Inj) 100 mcg IV Q2H PRN PRN Reason: Pain,Severe (7-10) LABOR PAIN Oxytocin/Sodium Chloride (Pitocin/Ns 30 Unit/500ml) 30 units in 500 mls @ 1 mls/hr IV TITR SHANE; Protocol Last Titration: 11/14/20 06:40 Dose: 3 mls/hr, 3 mls/hr Documented by: Lactated Ringer's (Lactated Ringers) 1,000 mls @ 125 mls/hr IV DIRECT SHANE Oxytocin/Sodium Chloride (Pitocin/Ns 30 Unit/500ml) 30 units in 500 mls @ 40 mls/hr IV TITR SHANE; Protocol Loperamide HCl (Loperamide 2 Mg Cap) 2 mg PO ONCE PRN PRN Reason: give with Hemabate Methylergonovine Maleate (Methylergonovine Maleate 0.2 Mg/Ml Vial) 0.2 mg IM ONCE PRN PRN Reason: Uterine Bleeding Mineral Oil (Mineral Oil 30 Ml Oral Liqd) 30 ml PO QHS PRN PRN Reason: Constipation Misoprostol (Misoprostol 200 Mcg Tab) 800 mcg MI ONCE PRN PRN Reason: Uterine Bleeding Nalbuphine HCl (Nalbuphine 10 Mg/1 Ml Inj) 10 mg IV Q2H PRN PRN Reason: Pain, Moderate (4-6) Naloxone HCl (Naloxone 0.4 Mg/1 Ml Inj) 0.1 mg IV Q2MIN PRN PRN Reason: Res Rate </= 8 or 02 SAT < 92% Ondansetron HCl (Ondansetron 4 Mg/2 Ml Inj) 4 mg IV Q6H PRN PRN Reason: Nausea And Vomiting Oxytocin (Oxytocin 10 Unit/1 Ml Inj) 10 unit IM ONCE PRN PRN Reason: Uterine Bleeding Terbutaline Sulfate (Terbutaline 1 Mg/1 Ml Inj) 0.25 mg SUB-Q ONCE PRN PRN Reason: Hyperstimulation/Hypertonicity Review of Systems All systems: negative Genitourinary: contractions, no leakage of fluid - Vital Signs Vital signs: Vital Signs Temp Pulse Resp Pulse Ox 97.9 F 88 18 100 11/14/20 01:42 11/14/20 01:42 11/14/20 01:42 11/14/20 01:42 Temp Pulse Resp BP Pulse Ox 97.9 F 79 18 116/72 100 11/14/20 01:42 11/14/20 08:02 11/14/20 01:42 11/14/20 07:38 11/14/20 08:02 - Physical Exam Breasts: Positive: normal Cardiovascular: Regular rate Lungs: Positive: Clear to auscultation Abdomen: Positive: normal appearance - Obstetrical Cervical Dilatation: 3 Results Result Diagrams: 11/14/20 01:37 Abnormal lab results 11/14/20 Range/Units 01:37 Hgb 9.8 L (10.1-14.3) gm/dl Hct 30.2 L (30.3-42.9) % MCV 74 L (79-97) fl MCH 24 L (28-32) pg RDW 18.1 H (13.2-15.2) % All other labs normal. Assessment and Plan - Patient Problems (1) Intrauterine growth restriction affecting care of mother Current Visit: Yes Status: Acute Plan to address problem: Admit for induction of labor (2) Post-dates Current Visit: Yes Status: Acute
--- NOTE | 2020-11-14 10:01 | Anesthesia Consultation ---
Anesthesia Consult and Med Hx Date of service: 11/14/20 - Airway Anesthetic Teeth Evaluation: Good ROM Head & Neck: Adequate Mental/Hyoid Distance: Adequate Mallampati Class: Class II Intubation Access Assessment: Probably Good - Pulmonary Exam CTA: Yes - Cardiac Exam Cardiac Exam: RRR - Pre-Operative Health Status ASA Pre-Surgery Classification: ASA2 Proposed Anesthetic Plan: Epidural - Pulmonary Hx Smoking: No Hx Asthma: No COPD: No Hx Pneumonia: No Hx Sleep Apnea: No - Cardiovascular System Hx Hypertension: No Hx Heart Attack/AMI: No Hx Angina: No - Central Nervous System Hx Seizures: No Hx Psychiatric Problems: Yes (ANXIETY) - Endocrine Hx Renal Disease: No Hx End Stage Renal Disease: No Hx Hypothyroidism: No Hx Hyperthyroidism: No - Hematic Hx Anemia: Yes (2020) Hx Sickle Cell Disease: No - Other Systems Hx Alcohol Use: No Hx Obesity: Yes
--- NOTE | 2020-11-14 10:02 | Progress Note ---
Labor Epidural - Labor Epidural Start Time: 09:35 Stop Time: 09:55 Performed by:: JOVAN TILLMAN Procedure: Patient is requesting epidural for labor and pain. H&P, labs were reviewed. Patient IDed, H&P reviewed, all questions and concerns were answered, and consent was signed. Timeout was performed at bedside. Patient in sitting position. Sterile prep and drape was performed. 3ml of 1% lidocaine skin wheal at L[2]- L [3]. 18-gauge Tuohy epidural needle was advanced without success. 3ml of 1% lidocaine skin wheal at L[3]- L [4]. 18-gauge Tuohy epidural needle was advanced to loss of resistance with air technique 8cm. Negative CSF n egative blood. Epidural catheter advanced to [13] centimeters. [negative] Aspiration [negative] test dose. Sterile dressing applied. Patient tolerated procedure.
[2020-11-14] MEDS ORDERED: diphenhydrAMINE 50 MG/ML VIAL IV PRN (11:00)
[2020-11-14] MEDS ORDERED: LACTATED RINGERS 250 ML IV SOLN IV ONE (11:00)
[2020-11-14] MEDS ORDERED: NALOXONE 2 MG/2 ML INJ IV PRN (11:00)
[2020-11-14] MEDS ORDERED: fentaNYL-BUPIV 2 MCG/ML-0.125% 200 MCG/100 ML BAG EPIDURAL SCH (11:00)
[2020-11-14] MEDS ORDERED: KETOROLAC 30 MG/1 ML INJ IV NR (11:05)
--- NOTE | 2020-11-14 11:07 | Procedure Note ---
OB Delivery Note - Delivery Date of Delivery: 11/14/20 Surgeon: WILL ESTRADA Estimated blood loss: 200cc - Vaginal Delivery presentation: vertex Delivery position: OA Delivery augmentation: pitocin Delivery monitor: external FHT, external uterine Route of delivery: Delivery placenta: spontaneous Delivery cord: 3 umbilical vessels Episiotomy: none Delivery laceration: none Anesthesia: none Delivery comments: Patient rapidly progressed from 3 cm to complete complete +2 and had reached to push. The patient pushed to deliver a live-born male infant with Apgars of 8 a nd 9 weight 7 pounds 1 ounce at 1031. The delivery was attended by the certified nurse investment strategist wall insulation sprayer. The delivered without difficulty over intact perineum. The placenta delivered spontaneously intact with a three- vessel cord. Estimated blood loss of 200 mL - Infant A at 1 minute: 8 at 5 minutes: 9 Infant Gender: Male (Weight 7 pounds 1 ounce)
[2020-11-14] MEDS ORDERED: diphenhydrAMINE 25 MG CAP PO PRN (11:30)
[2020-11-14] MEDS ORDERED: WITCH HAZEL/ GLYCERIN PAD TP PRN (11:30)
[2020-11-14] MEDS ORDERED: oxyCODONE /ACETAMINOPHEN 5-325MG TAB PO STA (11:59)
[2020-11-14] MEDS ORDERED: PROMETHAZINE 25 MG TAB PO PRN (12:00)
[2020-11-14] MEDS ORDERED: PROMETHAZINE 25 MG RECT SUPP PR PRN (12:00)
[2020-11-14] MEDS ORDERED: LANOLIN/ZINC/DIMETHICONE (LANSINOH) 7 GM TP PRN (12:00)
[2020-11-14] MEDS: IBUPROFEN 600 MG TAB PO SCH ×2 (16:57→23:06)
[2020-11-14] MEDS: HYDROcodone/ACETAMINOPHEN 5-325 MG TAB PO PRN (21:13)
[2020-11-14] MEDS ORDERED: MAGNESIUM HYDROXIDE (MOM) ORAL LIQD UDC PO PRN (22:00)
[2020-11-15 00:14] LABS: Hematocrit 30.7 % (30.3-42.9); Hemoglobin 9.7 gm/dl (10.1-14.3)
[2020-11-15] MEDS: HYDROcodone/ACETAMINOPHEN 5-325 MG TAB PO PRN (06:12)
[2020-11-15] MEDS: IBUPROFEN 600 MG TAB PO SCH ×2 (06:13→13:00)
--- NOTE | 2020-11-15 11:21 | Post Anesthesia Evaluation ---
- Post Anesthesia Evaluation Patient Participated: Yes Airway Patent: Yes Stable Respiratory Function: Yes Nausea/Vomiting: No Temp > 96.8F: Yes Pain Manageable: Yes Adequeate Hydration: Yes Anesthesia Complications: Yes (pt reports back pain at insertion site ) Block Receding Appropriately: Yes Patient on Ventilator: No
--- NOTE | 2020-11-15 14:50 | Discharge Summary ---
Providers - Providers Date of Admission: 11/14/20 02:48 Date of discharge: 11/16/20 Attending physician: TATIANA ROMAN Primary care physician: TATIANA ROMAN Hospitalization Reason for admission: active labor Delivery: Episiotomy: none Laceration: none Other procedures: none complications: none Discharge diagnosis: IUP at term delivered baby: male Hospital course: 24-year-old -0-0-2 at 40 for 6 weeks and is for postdates induction and also intrauterine growth restriction. The patient is a transfer care at 14 weeks estimated gestational age. Her course is also complicated by history of genital herpes and she denies any recent prodrome. Delivered viable male infant. Condition at discharge: Good Disposition: 01 HOME / SELF CARE / HOMELESS - Discharge Diagnoses (1) Status post normal vaginal delivery Status: Acute (2) Anemia Status: Acute Qualifiers: Anemia type: iron deficiency Comment: Asymptomatic Increase iron rich foods into diet Plan - Discharge Medications Prescriptions: Ibuprofen [Motrin 600 MG tab] 600 mg PO Q8H 7 Days #21 tablet - Provider Discharge Summary Activity: routine, no sex for 6 weeks, no heavy lifting 4 weeks, no strenuous exercise Diet: other (Iron rich diet) Instructions: routine Additional instructions: [] Smoking cessation referral if applicable(refer to patient education folder for contact #) [] Refer to [facility] Booklet Call your doctor immediately for: * Fever > 100.5 * Heavy vaginal bleeding ( >1 pad per hour) * Severe persistent headache * Shortness of breath * Reddened, hot, painful area to leg or breast - Follow up plan Follow up: TATIANA ROMAN MD [Primary Care Provider] - 6 Weeks
[2020-11-15 18:04] VITALS: BP 101/58
== END 2020-11-15 21:00 | disposition home or self-care (01) | DRG 774 ==
LOC: LD 00:43 → UNDOADMIN 00:43 → LD 00:51 → OB 12:15
PROVIDERS: ADMIT Obstetrics & Gynecology; ATTEND Obstetrics & Gynecology
PROC: 10E0XZZ Delivery of Products of Conception, External Approach (ICD-10-PCS; principal; 2020-11-14)
DX: O48.0 Post-term pregnancy (principal); O98.32 Other infections with a predominantly sexual mode of transmission complicating childbirth; Z37.0 Single live birth; Z20.822 Contact with and (suspected) exposure to COVID-19; Z3A.40 40 weeks gestation of pregnancy; A60.00 Herpesviral infection of urogenital system, unspecified; O36.5930 Maternal care for other known or suspected poor fetal growth, third trimester, not applicable or unspecified; O90.81 Anemia of the puerperium; D64.9 Anemia, unspecified
CPT/HCPCS: 36415; 85014; 85018; 85027; 86592; 86850; 86900; 86901; G0378; J0595; J1885; J2590; U0003

== ENCOUNTER 2021-03-27 23:03 | Emergency (ER) | payer OTHER ==
[2021-03-28 01:16] LABS: Basophils % (Auto) 0.6 % (0.0-1.8); Eosinophils # (Auto) 0.2 K/mm3 (0.0-0.4); Eosinophils % (Auto) 3.7 % (0.0-4.3); Hematocrit 38.8 % (30.3-42.9); Hemoglobin 12.1 gm/dl (10.1-14.3); Lymphocytes # (Auto) 2.3 K/mm3 (1.2-5.4); Lymphocytes % (Auto) 47.1 % (13.4-35.0); Mean Corpuscular HGB Conc 31 % (30-34); Mean Corpuscular Volume 76 fl (79-97); Monocytes # (Auto) 0.5 K/mm3 (0.0-0.8); Monocytes % (Auto) 9.1 % (0.0-7.3); Platelet Count 270 K/mm3 (140-440); Red Cell Distribution Width 16.1 % (13.2-15.2)
[2021-03-28 01:34] LABS: BUN/Creatinine Ratio 10; Blood Urea Nitrogen 8 mg/dL (7-17); Calcium 9.3 mg/dL (8.4-10.2); Hemolysis Index 2
--- NOTE | 2021-03-28 06:00 | Emergency Department Report ---
ED General Adult HPI - General Chief complaint: Psych Stated complaint: DEPRESSION Time Seen by Provider: 03/28/21 00:34 Source: patient Mode of arrival: Ambulatory Limitations: No Limitations - History of Present Illness Initial comments: post depression , had a baby recently and hasn;t been feeling well , no SI or HI but needed to talkt o somebody - Related Data Home Medications Medication Instructions Recorded Confirmed Last Taken Ferrous Sulfate [Iron 325 MG] 325 mg PO DAILY 11/14/20 11/14/20 1 Day Ago ~11/13/20 Previous Rx's Medication Instructions Recorded Last Taken Type Ibuprofen [Motrin 600 MG tab] 600 mg PO Q8H 7 Days #21 tablet 11/15/20 Unknown Rx Escitalopram [Lexapro] 10 mg PO DAILY 30 Days #30 tablet 03/28/21 Unknown Rx traZODone [Desyrel] 50 mg PO QHS 30 Days #30 tab 03/28/21 Unknown Rx Allergies Allergy/AdvReac Type Severity Reaction Status Date / Time No Known Allergies Allergy Unverified 04/07/17 10:44 ED Review of Systems ROS: Stated complaint: DEPRESSION Other details as noted in HPI Constitutional: denies: chills, fever Eyes: denies: eye pain, eye discharge, vision change ENT: denies: ear pain, throat pain Respiratory: denies: cough, shortness of breath, wheezing Cardiovascular: denies: chest pain, palpitations Endocrine: no symptoms reported Gastrointestinal: denies: abdominal pain, nausea, diarrhea Genitourinary: denies: urgency, dysuria, discharge Musculoskeletal: denies: back pain, joint swelling, arthralgia Skin: denies: rash, lesions Neurological: denies: headache, weakness, paresthesias Psychiatric: denies: anxiety, depression Hematological/Lymphatic: denies: easy bleeding, easy bruising ED Past Medical Hx - Past Medical History Previous Medical History?: No Hx Hypertension: No Hx Heart Attack/AMI: No Hx Congestive Heart Failure: No Hx Diabetes: No Hx Deep Vein Thrombosis: No Hx Renal Disease: No Hx Sickle Cell Disease: No Hx Seizures: No Hx Asthma: No Hx COPD: No Hx HIV: No - Surgical History Past Surgical History?: No - Social History Smoking Status: Never Smoker - Medications Home Medications: Home Medications Medication Instructions Recorded Confirmed Last Taken Type Ferrous Sulfate [Iron 325 MG] 325 mg PO DAILY 11/14/20 11/14/20 1 Day Ago History ~11/13/20 Ibuprofen [Motrin 600 MG tab] 600 mg PO Q8H 7 Days #21 tablet 11/15/20 Unknown Rx Escitalopram [Lexapro] 10 mg PO DAILY 30 Days #30 tablet 03/28/21 Unknown Rx traZODone [Desyrel] 50 mg PO QHS 30 Days #30 tab 03/28/21 Unknown Rx ED Physical Exam - General Limitations: No Limitations General appearance: alert, in no apparent distress - Head Head exam: Present: atraumatic, normocephalic - Eye Eye exam: Present: normal appearance - ENT ENT exam: Present: mucous membranes moist - Neck Neck exam: Present: normal inspection - Respiratory Respiratory exam: Present: normal lung sounds bilaterally. Absent: respiratory distress - Cardiovascular Cardiovascular Exam: Present: regular rate, normal rhythm. Absent: systolic murmur, diastolic murmur, rubs, gallop - GI/Abdominal GI/Abdominal exam: Present: soft, normal bowel sounds - Extremities Exam Extremities exam: Present: normal inspection - Back Exam Back exam: Present: normal inspection - Neurological Exam Neurological exam: Present: alert, oriented X3 - Psychiatric Psychiatric exam: Present: depressed, anxious - Skin Skin exam: Present: warm, dry, intact, normal color. Absent: rash ED Course Vital Signs 03/27/21 03/28/21 23:10 08:44 Temperature 98.0 F 98.4 F Pulse Rate 83 78 Respiratory 18 18 Rate Blood Pressure 129/84 Blood Pressure 148/99 [Left] O2 Sat by Pulse 100 100 Oximetry ED Medical Decision Making - Lab Data Result diagrams: 03/28/21 00:51 03/28/21 00:51 Critical care attestation.: If time is entered above; I have spent that time in minutes in the direct care of this critically ill patient, excluding procedure time. ED Disposition Clinical Impression: depression Disposition: 01 HOME / SELF CARE / HOMELESS Is pt being admited?: No Does the pt Need Aspirin: No Condition: Stable Instructions: Depression, Baby Blues Additional Instructions: Please follow-up using the following outpatient resources. Return to the emergency department should he develop any emergent health concerns OUTPATIENT MENTAL HEALTH RESOURCES [facility], [facility] Dian Su MD: [address] [place] [address] [place] [address] [facility]: [facility] [address] [place] [address] [place] [address] [phone] [facility]: [facility]: [address] [place] [address] [address] [place] [id number] [facility] [id number] [facility]: Andrea Tubbs MD: [address] [facility] [address] [facility] [id number] [facility]: [address] [place], [place] [id number] [phone] CRISIS AND ACCESS LINE: Prescriptions: traZODone [Desyrel] 50 mg PO QHS 30 Days #30 tab Escitalopram [Lexapro] 10 mg PO DAILY 30 Days #30 tablet Referrals: [facility] [Provider Group] - 3-5 Days
[2021-03-28 08:47] VITALS: BP 148/99
--- NOTE | 2021-03-28 11:51 | Consultation ---
History of Present Illness - Reason for Consult Consult date: 03/28/21 Reason for consult: mental health evaluation - History of Present Psychiatric Illness Isabel Cole is a 25 year old female with history of OCD, Anxiety disorder who presents to the ED for mental health evaluation. In my interview with the patient, she reports that she recently had a baby in October and states she started having symptoms such as difficulty with sleep, concentrating, racing thoughts and paranoia. The patient states she has tried Lexapro and Trazodone in the past and it worked for her. The patient denies any current suicidal/homicidal ideation and denies hallucinations. PAST PSYCHIATRIC HISTORY: Diagnoses: OCD, Anxiety Suicide attempts or Self-harm behavior: Denies Prior psychiatric hospitalizations: denies Substance Abuse history: Denies Previous psychiatric medications tried: Lexapro Outpatient treatment:Yes PAST MEDICAL HISTORY: Family Psychiatric History: None reported or documented SOCIAL HISTORY Marital Status: Single Living Arrangements: Lives with boyfriend Employment Status: Student Access to guns/weapons: Denies Education: 12th grade History of Abuse: n/a Legal History:Unknown REVIEW OF SYSTEMS Constitutional: Negative for weight loss ENT: Negative for stridor Respiratory: Negative for cough or hemoptysis All other systems reviewed and are negative MENTAL STATUS EXAMINATION General Appearance and Behavior: Age appropriate, good hygiene, wearing appropriate clothes, uncooperative polite with questioning. Cooperation: cooperative Psychomotor Behavior: Psychomotor agitation Mood: Depressed Affect and affective range: congruent Thought Process:Goal oriented Thought Content: reality oriented Speech:Normal Intellectual Functioning: Average Suicidal Ideation:Denies Homicidal Ideation: Denied hallucination: Denied Impulse Control:Questionable Insight and Judgment:limited insight and fair judgment Memory: Intact Attention:Distractible Orientation: Alert and oriented Diagnoses: (1) depression Treatment Plan: Continue - Home Medications. Start Lexapro 10mg po daily Start Trazodone 50mg po QHS [place] 1013 Continue home meds Patient should be compliant with medications and not to use drugs and not to drink alcohol. PSYCHOTHERAPY: Supportive psychotherapy provided MEDICAL: Per primary team DELIRIUM PRECAUTIONS: Please re-orient patient frequently, keep lights on during the day, and minimize benzodiazepines and opiates as these medications could worsen patient's confusion. ENTRY WRITER: Per medical team DISPOSITION: Do not recommend acute inpatient psychiatric hospitalization at this time FOLLOW-UP: Will sign off. Thank you for the consult. Please contact with any questions and/or concerns. Medications and Allergies Allergies Allergy/AdvReac Type Severity Reaction Status Date / Time No Known Allergies Allergy Unverified 04/07/17 10:44 Home Medications Medication Instructions Recorded Confirmed Last Taken Type Ferrous Sulfate [Iron 325 MG] 325 mg PO DAILY 11/14/20 11/14/20 1 Day Ago History ~11/13/20 Ibuprofen [Motrin 600 MG tab] 600 mg PO Q8H 7 Days #21 tablet 11/15/20 Unknown Rx Escitalopram [Lexapro] 10 mg PO DAILY 30 Days #30 tablet 03/28/21 Unknown Rx traZODone [Desyrel] 50 mg PO QHS 30 Days #30 tab 03/28/21 Unknown Rx Mental Status Exam - Vital signs Last Vital Signs Temp 98.4 F 03/28/21 08:44 Pulse 78 03/28/21 08:44 Resp 18 03/28/21 08:44 BP 148/99 03/28/21 08:44 Pulse Ox 100 03/28/21 08:44 Results Result Diagrams: 03/28/21 00:51 03/28/21 00:51 Abnormal lab results 03/28/21 03/28/21 03/28/21 Range/Units 00:51 00:51 00:51 RBC 5.10 H (3.65-5.03) M/mm3 MCV 76 L (79-97) fl MCH 24 L (28-32) pg RDW 16.1 H (13.2-15.2) % Lymph % (Auto) 47.1 H (13.4-35.0) % [place] % (Auto) 9.1 H (0.0-7.3) % Seg Neutrophils % 39.5 L (40.0-70.0) % Salicylates < 0.3 L (2.8-20.0) mg/dL Acetaminophen 5.0 L (10.0-30.0) ug/mL All other labs normal.
--- NOTE | 2021-03-28 12:13 | Event Note ---
Date: 03/28/21 25-year-old female here with depression. She was seen by my colleague and was medically cleared for psychiatric evaluation and placement as deemed necessary. Vital signs reviewed and are stable. There were no acute events overnight. She was seen by the mental health/psychiatry team today who initiated medications and recommended discharge with outpatient resources.
== END 2021-03-28 13:24 | disposition home or self-care (01) ==
LOC: ED 23:03
DX: F53.0 Postpartum depression (principal)
CPT/HCPCS: 36415; 80048; 80320; 84703; 85025; 99283; G0480

== ENCOUNTER 2021-04-21 09:45 | Emergency (ER) | payer SELFPAY ==
[2021-04-21 09:51] VITALS: BP 126/78
--- NOTE | 2021-04-21 10:51 | Emergency Department Report ---
ED Back Pain/Injury HPI - General Chief Complaint: Abdominal Pain Stated Complaint: BACK PAIN Time Seen by Provider: 04/21/21 10:25 Source: patient Limitations: No Limitations - History of Present Illness Initial Comments: 25-year-old -[place] female presents to the ER today with complaints of lower back pain, as well as frontal headache. Patient states that she has been having low back pain radiating around to the lower abdomen since around January 2021. Patient states that the pain has been constant. She states that it is worse with sitting up or laying down. She states that she did receive an epidural at the time of her delivery which was back in October, she did have some mild pain then but it became more prominent and January. She initially thought it was related to the epidural but when she followed up with her OB she was diagnosed with a UTI. She was prescribed Keflex which she took all of the medication but she states that did not really help. She states that she did not followed up with an urgent care sometime in March and was again diagnosed with a UTI but she states that the prescription for antibiotic was never sent to the pharmacy. Patient states that she is not having dysuria, urgency or frequency. She is having vaginal odor and itching. She states that her last menstrual cycle was sometime in December 2020. She wanted to one home test and she states that it was negative. She is not currently on any control. She denies any lower extremity weakness, saddle anesthesia, bowel bladder incontinence. She states that she has been having this frontal headache with postnasal drainage and a cough since the beginning of March. She reports associated nausea but no vomiting. She has taken 2 COVID-19 testing before which were negative. She denies any fever or chills. She reports no neck pain, head injury or vision change, speech changes, dizziness, focal weakness. She has not gotten any of the COVID-19 vaccines. Complaint: back pain, other (frontal PHILLIPS, nausea) -: week(s) - Related Data Home Medications Medication Instructions Recorded Confirmed Last Taken Ferrous Sulfate [Iron 325 MG] 325 mg PO DAILY 11/14/20 11/14/20 1 Day Ago ~11/13/20 Previous Rx's Medication Instructions Recorded Last Taken Type Escitalopram [Lexapro] 10 mg PO DAILY 30 Days #30 tablet 03/28/21 Unknown Rx traZODone [Desyrel] 50 mg PO QHS 30 Days #30 tab 03/28/21 Unknown Rx Cetirizine HCl [Zyrtec 10mg tab] 10 mg PO DAILY #30 tab 04/21/21 Unknown Rx Fluticasone [Flonase] 1 - 2 spray NS QDAY #1 bottle 04/21/21 Unknown Rx Ibuprofen [Motrin 600 MG tab] 600 mg PO Q8H 7 Days #21 tablet 04/21/21 Unknown Rx Allergies Allergy/AdvReac Type Severity Reaction Status Date / Time No Known Allergies Allergy Verified 04/21/21 09:50 ED Review of Systems ROS: Stated complaint: BACK PAIN Other details as noted in HPI Comment: All other systems reviewed and negative Constitutional: denies: chills, fever Eyes: denies: eye pain, eye discharge, vision change ENT: denies: ear pain, throat pain, dental pain, hearing loss, epistaxis, congestion Respiratory: cough. denies: shortness of breath, wheezing Cardiovascular: denies: chest pain, palpitations Endocrine: no symptoms reported Gastrointestinal: denies: abdominal pain, nausea, vomiting, diarrhea, constipation, hematemesis, melena, hematochezia Genitourinary: abnormal menses, other (Vaginal itching and odor). denies: urgency, dysuria, frequency, hematuria, discharge, dyspareunia Musculoskeletal: denies: back pain, joint swelling, arthralgia Skin: pruritus. denies: rash, lesions, change in color, change in hair/nails Neurological: denies: headache, weakness, numbness, paresthesias, confusion Psychiatric: denies: anxiety, depression, auditory hallucinations, visual hallucinations, homicidal thoughts, suicidal thoughts Hematological/Lymphatic: denies: easy bleeding, easy bruising, swollen glands ED Past Medical Hx - Past Medical History Hx Hypertension: No Hx Heart Attack/AMI: No Hx Congestive Heart Failure: No Hx Diabetes: No Hx Deep Vein Thrombosis: No Hx Renal Disease: No Hx Sickle Cell Disease: No Hx Seizures: No Hx Asthma: No Hx COPD: No Hx HIV: No - Social History Smoking Status: Never Smoker - Medications Home Medications: Home Medications Medication Instructions Recorded Confirmed Last Taken Type Ferrous Sulfate [Iron 325 MG] 325 mg PO DAILY 11/14/20 11/14/20 1 Day Ago His tory ~11/13/20 Escitalopram [Lexapro] 10 mg PO DAILY 30 Days #30 tablet 03/28/21 Unknown Rx traZODone [Desyrel] 50 mg PO QHS 30 Days #30 tab 03/28/21 Unknown Rx Cetirizine HCl [Zyrtec 10mg tab] 10 mg PO DAILY #30 tab 04/21/21 Unknown Rx Fluticasone [Flonase] 1 - 2 spray NS QDAY #1 bottle 04/21/21 Unknown Rx Ibuprofen [Motrin 600 MG tab] 600 mg PO Q8H 7 Days #21 tablet 04/21/21 Unknown Rx ED Physical Exam - General Limitations: No Limitations General appearance: alert, in no apparent distress - Head Head exam: Present: atraumatic, normocephalic, normal inspection - Eye Eye exam: Present: normal appearance, PERRL, EOMI Pupils: Present: normal accommodation - ENT ENT exam: Present: normal exam, mucous membranes moist, normal external ear exam - Neck Neck exam: Present: normal inspection, full ROM. Absent: meningismus - Respiratory Respiratory exam: Present: normal lung sounds bilaterally. Absent: respiratory distress, wheezes, rales, rhonchi - Cardiovascular Cardiovascular Exam: Present: regular rate, normal rhythm, normal heart sounds - GI/Abdominal GI/Abdominal exam: Present: soft. Absent: distended, tenderness, guarding, rebound - External exam: Present: normal external exam, other (Clinical Quality Assurance Associate present - Nurse Gin) Speculum exam: Present: vaginal discharge (small amt of white d/c ). Absent: erythema, cervical discharge, vaginal bleeding, foreign body, tissue, laceration Bi-manual exam: Present: adnexal tenderness (mild right ). Absent: cervical motion tendernes, adnexal mass, uterine enlargement, uterine tenderness - Back Exam Back exam: Present: normal inspection, full ROM. Absent: tenderness, CVA tenderness (R), CVA tenderness (L), muscle spasm, paraspinal tenderness, vertebral tenderness - Neurological Exam Neurological exam: Present: alert, oriented X3, CN II-XII intact, normal gait - Psychiatric Psychiatric exam: Present: normal affect, normal mood - Skin Skin exam: Present: intact ED Course Vital Signs 04/21/21 09:50 Temperature 98.6 F Pulse Rate 78 Respiratory 16 Rate Blood Pressure 126/78 O2 Sat by Pulse 97 Oximetry ED Medical Decision Making - Medical Decision Making UA negative for UTI; HCG negative. wet prep normal. Pt currently sitting in recliner comfortably. She is not in any distress. She is not toxic or ill appearing. She is ambulatory in the ER with a normal gait. She is mentally stable, awake alert oriented x3 with a GCS of 15. She has no meningeal signs on exam. Chest is clear to auscultation. Abdomen soft nontender. She has no spinal tenderness or CVA tenderness. She has not full range of motion of her spine without any difficulty. Pelvic exam showed some mild right adnexal tenderness but otherwise no adnexal mass, no CMT or abnormal bleeding. Patient has been symptoms of this back pain into her lower back since she gave in October of last year. This is likely chronic and recommend she follows up with the PCP orthospine specialist. Her headache postnasal drainage and cough likely viral or related to viral sinusitis at this time. Her vital signs are stable. At this time I do not see an indication for any additional emergent testing, treatment or admission. Patient will be given referral information to PCP and alternative financing specialist. Patient was stable at time of discharge Critical care attestation.: If time is entered above; I have spent that time in minutes in the direct care of this critically ill patient, excluding procedure time. ED Disposition Clinical Impression: Low back pain, Missed period, Sinusitis Disposition: 01 HOME / SELF CARE / HOMELESS Is pt being admited?: No Does the pt Need Aspirin: No Condition: Stable Instructions: Menstruation, Sinusitis, Adult, [id number], Chronic Back Pain, [id number], Abdominal Pain (ED) Additional Instructions: I recommend taking motrin to help with your pain. Take the flonase and Zyrtec to help your sinuses. I do recommend that you follow-up with your [facility] for further evaluation of your missed periods. If you continue having low back pain I do recommend that you follow-up with either your PCP orthospine specialist for an outpatient MRI. Prescriptions: Fluticasone [Flonase] 1 - 2 spray NS QDAY #1 bottle Ibuprofen [Motrin 600 MG tab] 600 mg PO Q8H 7 Days #21 tablet Cetirizine HCl [Zyrtec 10mg tab] 10 mg PO DAILY #30 tab Referrals: [facility] [Provider Group] - 3-5 Days [facility] [Provider Group] - 3-5 Days ORQUIDEA MONTE MD [Staff Physician] - 3-5 Days Forms: Work/School Release Form(ED) Time of Disposition: 13:29
[2021-04-21 13:19] LABS: HCG Qualitative,Urine Negative (Negative)
[2021-04-21 13:21] LABS: Bacteria,Urine 1+ /HPF (Negative); Bilirubin,Urine NEG (Negative); Blood,Urine NEG (Negative); Color,Urine Yellow (Yellow); Mucus,Urine FEW /HPF; Protein,Urine <15 mg/dL mg/dL (Negative); Urobilinogen,Urine < 2.0 mg/dL (<2.0)
== END 2021-04-21 13:42 | disposition home or self-care (01) ==
LOC: ED 09:45
DX: M54.50 Low back pain, unspecified (principal); N92.6 Irregular menstruation, unspecified; J32.9 Chronic sinusitis, unspecified
CPT/HCPCS: 81001; 81025; 87210; 99284